=== PATIENT | female | born 1940 | race Caucasian/White ===

== ENCOUNTER 2020-02-01 11:42 | Emergency (ER) | payer MEDICARE, SELFPAY ==
--- NOTE | ~2020-02-01 | XR_ITS ---
EXAMINATION: XR chest 1V portable DATE: 02/01/2020 13:21 INDICATION: Shortness of breath. TECHNIQUE: A single frontal view of the chest was obtained. COMPARISON: None. FINDINGS: There are mild peripheral airspace opacities in the upper and lower lung zones bilaterally. No pleural effusion or pneumothorax. The heart size is normal. IMPRESSION: 1. Mild peripheral airspace opacities in the upper and lower lung zones, consistent with atelectasis/ scarring versus pneumonia. Reviewed, dictated and finalized at location A. IMPRESSION: 1. Mild peripheral airspace opacities in the upper and lower lung zones, consis tent with atelectasis/scarring versus pneumonia.
--- NOTE | 2020-02-01 11:57 | ECG_ITS ---
Measurements Intervals [place] Rate: 99 P: 37 WI: 124 QRS: 28 QRSD: 86 T: 36 QT: 342 QTc: 441 Interpretive Statements SINUS RHYTHM RSR' IN V1 OR V2, CONSIDER RIGHT VENTRICULAR HYPERTROPHY OR RIGHT VCD ST ABNORMALITY IN ANTEROLATERAL LEADS- CONSIDER ISCHEMIA BASELINE ARTIFACT- I, II, III, AVR, AVL, AVF BORDERLINE ECG Electronically Signed On 02-01-2020 12:51:22 CDT by Lenny Greenwood D.O.
[2020-02-01 12:00] VITALS: BP 129/63; PULSE 100; RESP 16; TEMP 36.8; O2SAT 98
[2020-02-01 12:03] VITALS: PULSE 100
--- NOTE | 2020-02-01 12:30 | ED.SOB ---
HPI - SOB/Dyspnea General Chief Complaint: Shortness of Breath/Dyspnea Stated Complaint: COVID, SOB Time Seen by Provider: 02/01/20 12:12 History of Present Illness HPI Narrative: 79 yo w/ h/o asthma, COVID-19 presents to the ED for SOB. She began having URI symptoms on Thursday. Positive COVID-19 test results came back 2 days ago. She has had cough, congestion, fever, and TAYLOR since getting sick. Additionally she has had nausea, loss of appetite. She has been controlling her fever with tylenol and aspirin. Related Data Home Medications Medication Instructions Recorded Confirmed ergocalciferol (vitamin D2) 50,000 unit PO WEEKLY 02/04/20 02/04/20 fluticasone furoate-vilanterol 1 inh INHALATION DAILY 02/04/20 02/04/20 [Breo Ellipta] losartan 100 mg PO DAILY 02/04/20 02/04/20 montelukast 10 mg PO DAILY 02/04/20 02/04/20 pantoprazole 40 mg PO DAILY 02/04/20 02/04/20 pravastatin 40 mg PO DAILY 02/04/20 02/04/20 spironolactone 25 mg PO DAILY 02/04/20 02/04/20 Allergies Allergy/AdvReac Type Severity Reaction Status Date / Time Penicillins Allergy Hives Verified 02/04/20 18:55 Review of Systems Review of Systems: All systems reviewed & are unremarkable except as noted in HPI and below Constitutional: Constitutional: Reports chills, Reports fatigue and Reports fever(s) Cardiovascular: Cardiovascular: Denies chest pain Respiratory: Respiratory: Reports chest congestion, Reports cough and Reports dyspnea Gastrointestinal: Gastrointestinal: Denies constipation, Denies diarrhea, Reports nausea and Denies vomiting Genitourinary: Genitourinary: Denies dysuria Neurologic: Reports dizziness and Denies weakness [facility] Past Medical History Medical History (Updated 02/04/20 @ 23:42 by Lyndsay Shook PA-C) Asthma Gastroesophageal reflux disease Hyperlipidemia Hypertension Surgical History Surgical History (Updated 02/04/20 @ 23:38 by Lyndsay Shook PA-C) History of hysterectomy History of tonsillectomy Family History Family History Other Family history of malignant neoplasm Hypertension Social History Social History (Updated 02/04/20 @ 23:39 by Lyndsay Shook PA-C) Social History: The patient lives in [place]. Her on 01/31/2020. She is a lifelong nonsmoker and denies alcohol and illicit substance use. She designates her son Darrius Chinchilla as her surrogate decision maker and she wishes to be a full code. Spiritual care concerns: No Exam Const: General: healthy appearing, no acute distress and alert Orientation/consciousness: patient oriented x3 HENMT: Head: normal to inspection Neck: Neck: normal visual inspection Resp: Effort & Inspection: normal respiratory effort Cardio: Jugular venous distension: no JVD Rate: tachycardic Rhythm: regular rhythm Skin: General skin exam: normal color Neuro: General: patient oriented x3 and moves all extremities Speech: normal speech Gait exam (Neuro): Normal gait present Extrem: General: no edema Psych: Appearance: well kempt Affect: normal affect Course Vital Signs Vital signs: Vital Signs Temperature 36.8 C 02/01/20 12:00 Pulse Rate 100 02/01/20 12:00 Respiratory Rate 16 02/01/20 12:00 Blood Pressure 129/63 02/01/20 12:00 Pulse Oximetry 98 02/01/20 12:00 Temperature 36.8 C 02/01/20 12:00 Pulse Rate 81 02/01/20 14:37 Respiratory Rate 18 02/01/20 14:37 Blood Pressure 104/92 H 02/01/20 14:37 Pulse Oximetry 96 02/01/20 14:37 MDM - SOB/Dyspnea MDM Narrative Medical decision making narrative: No episodes of hypoxia. Work-up largely unremarkable. Differential Diagnosis Differential diagnosis: Likely community acquired pneumonia and other (astham, COVID-19) Medical Records Attestation: I reviewed the patient's medical records. Lab Data Attestation: I reviewed the patient's lab results. Result diagrams:
[2020-02-01] MEDS: ONDANSETRON INJ 4 MG/2 ML VIAL IV PUSH (12:47)
[2020-02-01] MEDS: KETOROLAC 30 MG/ML VIAL (*BKC) IV PUSH (12:48)
[2020-02-01] MEDS: SODIUM CHLORIDE 0.9% IV 1,000 ML 999 ML IV CONT (12:48)
[2020-02-01 12:54] VITALS: BP 109/66; PULSE 87; RESP 19; O2SAT 97
[2020-02-01 12:56] LABS: Basophils Percent Auto 0.2 % (0.2-1.2); Hematocrit 40.6 % (37.0-47.0); Hemoglobin 13.4 g/dL (12.0-15.0); Immature Granulocyte Absolute 0.03 K/mm3 (0.00-0.031); Immature Granulocyte Percent A 0.3 % (0-0.5); Lymphocytes Absolute Auto 1.24 K/mm3 (0.9-3.2); Mean Corpuscular Hemoglobin 30.9 pg (26-34); Mean Corpuscular Volume 93.5 fl (80-100); Mean Platelet Volume 8.3 fl (7.4-10.4); Monocytes Absolute Auto 0.5 K/mm3 (0.1-0.6); Monocytes Percent Auto 4.5 % (2.6-8.5); Neutrophils Absolute Auto 8.6 K/mm3 (1.3-6.7); Platelet Count Result 249 k/mm3 (150-375); Red Blood Count 4.34 M/mm3 (4.2-5.4); Red Cell Distribution Width 13.2 % (11.5-14.5); White Blood Count 10.3 K/mm3 (4.5-10.0)
[2020-02-01 12:58] VITALS: O2SAT 97
[2020-02-01 13:08] LABS: Alanine Aminotransferase 23 U/L (4-35); Albumin Level 4.3 g/dL (3.5-5.1); Alkaline Phosphatase 66 U/L (38-126); Anion Gap 12 mmol/L (8-16); Aspartate Amino Transferase 51 U/L (14-36); Bilirubin,Total 0.4 mg/dL (0.2-1.3); Blood Urea Nitrogen 23 mg/dL (7-17); Calcium 9.3 mg/dL (8.4-10.2); Carbon Dioxide 26 mmol/L (22-30); Chloride 101 mmol/L (98-107); Estimated Glomerular Filt Rate > 60; Glucose 101 mg/dL (65-105); Potassium 3.8 mmol/L (3.4-5.0); Sodium 139 mmol/L (137-145)
[2020-02-01 14:02] VITALS: BP 109/66; PULSE 78; RESP 18; O2SAT 98
[2020-02-01 14:37] VITALS: BP 104/92; PULSE 81; RESP 18; O2SAT 96
== END 2020-02-01 14:44 | disposition home or self-care (01) ==
PROVIDERS: Emergency Provider Emergency Medicine; PCP Internal Medicine
DX: U07.1 COVID-19 (principal); J12.89 Other viral pneumonia; K21.9 Gastro-esophageal reflux disease without esophagitis; E78.5 Hyperlipidemia, unspecified; I10 Essential (primary) hypertension; J45.909 Unspecified asthma, uncomplicated; R94.31 Abnormal electrocardiogram [ECG] [EKG]
CPT/HCPCS: 36415; 71045; 80053; 85025; 93005; 96361; 96374; 96375; 99284; J1100; J1885; J2405; J7030

== ENCOUNTER 2020-02-04 12:50 | Inpatient (IN) | payer MEDICARE, SELFPAY ==
[2020-02-04] VITALS (8 sets, daily range): BP systolic 111–126; BP diastolic 50–71; PULSE 73–110; RESP 14–27; TEMP 36.6–38.3; O2SAT 89–98; BMI 20.7
--- NOTE | ~2020-02-04 | XR_ITS ---
EXAMINATION: XR chest 1V portable INDICATION: Shortness of breath, COVID positive TECHNIQUE: Portable AP chest at 1341 hours COMPARISON: 02/01/2020 FINDINGS: Peripheral airspace opacities of the lungs persist without significant change. There is no pleural effusion or pneumothorax. The cardiomediastinal silhouette is normal. IMPRESSION: 1. Unchanged airspace opacities of the lungs, consistent with atelectasis versus pneumonia. Reviewed, dictated and finalized at location A. IMPRESSION: 1. Unchanged airspace opacities of the lungs, consistent with atelectasis versu s pneumonia.
--- NOTE | ~2020-02-04 | XR_ITS ---
EXAMINATION: XR chest 1V portable INDICATION: COVID 19 pneumonia TECHNIQUE: Portable AP chest at 0828 hours COMPARISON: 02/04/2020 FINDINGS: Patchy, peripheral airspace opacities of the lungs persist without significant change. Ther e is no pleural effusion or pneumothorax. Mild elevation of the right hemidiaphragm is unchanged. The cardiomediastinal silhouette is stable. IMPRESSION: 1. Unchanged patchy airspace opacities of the lungs, consistent with atelectasis versus pneumonia. Reviewed, dictated and finalized at location A. [employer] IMPRESSION: 1. Unchanged patchy airspace opacities of the lungs, consistent with atelectasi s versus pneumonia.
[2020-02-04 13:23] LABS: Basophils Percent Auto 0.1 % (0.2-1.2); Eosinophils Percent Auto 0.1 % (0-4.4); Hematocrit 36.5 % (37.0-47.0); Hemoglobin 12.3 g/dL (12.0-15.0); Immature Granulocyte Absolute 0.05 K/mm3 (0.00-0.031); Immature Granulocyte Percent A 0.6 % (0-0.5); Lymphocytes Absolute Auto 0.96 K/mm3 (0.9-3.2); Lymphocytes Percent Auto 10.6 % (18.3-44.2); Mean Corpuscular HGB Conc 33.7 g/dl (32-36); Mean Corpuscular Hemoglobin 30.8 pg (26-34); Mean Corpuscular Volume 91.5 fl (80-100); Mean Platelet Volume 8.4 fl (7.4-10.4); Monocytes Absolute Auto 0.4 K/mm3 (0.1-0.6); Monocytes Percent Auto 4.3 % (2.6-8.5); Neutrophils Absolute Auto 7.6 K/mm3 (1.3-6.7); Neutrophils Percent Auto 84.3 % (45.5-73.1); Platelet Count Result 337 k/mm3 (150-375); Red Blood Count 3.99 M/mm3 (4.2-5.4); Red Cell Distribution Width 13.4 % (11.5-14.5)
[2020-02-04 13:34] LABS: Lactic Acid Reflex 0.9 mmol/L (0.7-2.1)
[2020-02-04 13:38] LABS: Partial Thromboplastin Time 39.3 SECONDS (22.3-36.8)
[2020-02-04 13:51] LABS: Prothrombin Time 13.3 Seconds (11.1-14.7)
--- NOTE | 2020-02-04 13:52 | ED.GENADULT ---
HPI - General Adult General Chief complaint: Shortness of Breath/Dyspnea Stated complaint: low o2 saturations Time Seen by Provider: 02/04/20 13:39 Source: patient History of Present Illness HPI narrative: Patient is a 79 y/o female complaining of fever, cough and SOB for 8 days. She states that her fever was upto 102. There is no alleviating or exacerbating factor. She denies any chest pain, abdominal pain, vomiting or diarrhea. She found out that her COVID test was positive on 01/28. She continues to have persistent fever and cough after her COVID diagnosis. Related Data Home Medications Medication Instructions Recorded Confirmed ergocalciferol (vitamin D2) 02/04/20 fluticasone furoate-vilanterol INHALATION 02/04/20 [Breo Ellipta] losartan 02/04/20 montelukast mg 02/04/20 pantoprazole PO 02/04/20 pravastatin 02/04/20 spironolactone 02/04/20 Allergies Allergy/AdvReac Type Severity Reaction Status Date / Time Penicillins Allergy Hives Verified 02/04/20 14:55 Review of Systems Constitutional: Constitutional: Reports chills, Reports fever(s), Denies headache(s) and Denies weakness Eyes: Eyes: Denies blurry vision ENT: Denies headache(s) and Denies neck pain Cardiovascular: Cardiovascular: Denies chest pain and Reports dyspnea Respiratory: Respiratory: Reports cough and Reports dyspnea Gastrointestinal: Gastrointestinal: Denies abdominal pain, Denies diarrhea, Denies nausea and Denies vomiting Genitourinary: Genitourinary: Denies hematuria and Denies dysuria Musculoskeletal: Musculoskeletal: Denies back pain and Denies neck pain Neurologic: Denies headache(s) and Denies weakness [facility] Past Medical History Medical History Asthma GERD (gastroesophageal reflux disease) Family History Family History Other Family history of malignant neoplasm Hypertension Social History Social History Smoking status: Never smoker Alcohol intake: current Exam Const: General: no acute distress and well developed Orientation/consciousness: oriented to person, oriented to place, oriented to time and patient oriented x3 HENMT: Head: normocephalic Ears: external ears normal General nose exam: Normal external nose present Eyes: General: appearance normal, both eyes and all related structures Conjunctivae: conjunctivae normal Neck: Neck: normal visual inspection and full ROM Chest: Chest palpation & inspection: normal inspection of the chest and no tenderness Resp: Effort & Inspection: normal respiratory effort Auscultation: clear to auscultation bilaterally Cardio: Rate: regular rate Rhythm: regular rhythm GI: GI Palp: No abdominal tenderness and Yes Soft to palpation Skin: General skin exam: normal color and turgor normal Neuro: General: oriented to person, oriented to place, oriented to time and patient oriented x3 Cognition (Neuro): normal cognition Extrem: General: normal to inspection, full ROM and no pedal edema Psych: Appearance: grossly normal Mental Status: mental status grossly normal Affect: normal affect Course Consultations Consultation #1: Discussed with BILLY Umana, who agrees to admit. Date: 02/04/20 Time: 15:13 Vital Signs Vital signs: Vital Signs Temperature 38.3 C H 02/04/20 13:00 Pulse Rate 95 02/04/20 13:00 Respiratory Rate 16 02/04/20 13:00 Blood Pressure 111/66 02/04/20 13:00 Pulse Oximetry 95 02/04/20 13:00 Temperature 37.2 C 02/04/20 16:00 Pulse Rate 88 02/04/20 16:00 Respiratory Rate 22 H 02/04/20 16:00 Blood Pressure 112/61 02/04/20 16:00 Pulse Oximetry 95 02/04/20 16:00 Medical Decision Making Vital Signs Vital Signs: Vital Signs Temperature 38.3 C H 02/04/20 13:00 Pulse Rate 95 02/04/20 13:00 Respiratory Rate 16 02/04/20 13:00 Blood Pressur
[2020-02-04 13:53] LABS: Alanine Aminotransferase 27 U/L (4-35); Albumin Level 3.8 g/dL (3.5-5.1); Alkaline Phosphatase 93 U/L (38-126); Anion Gap 9 mmol/L (8-16); Aspartate Amino Transferase 50 U/L (14-36); Bilirubin,Total 0.4 mg/dL (0.2-1.3); Blood Urea Nitrogen 17 mg/dL (7-17); CRP 26.4 mg/dL (<1.0); Calcium 8.9 mg/dL (8.4-10.2); Carbon Dioxide 23 mmol/L (22-30); Chloride 104 mmol/L (98-107); Estimated Glomerular Filt Rate > 60; Glucose 101 mg/dL (65-105); Potassium 3.7 mmol/L (3.4-5.0); Sodium 136 mmol/L (137-145)
[2020-02-04 14:16] LABS: Alveolar/Arterial O2 Gradient 50.8 mmHg; Base Excess ABG -1.7 mEq/l (+/-2.0); Fractional Inspired Oxygen 21 %; HCO3 ABG 21.6 mEq/l (22.0-26.0); Oxygen Content ABG 15.7 %vol (16.0-22.0); Oxygen Saturation ABG 92.5 % (95.0-100.0); Oxyhemoglobin 91.4 % THb (90.0-100.0); PO2 ABG 60.6 mmHg (80.0-100.0); PO2 FiO2 Ratio Arterial Blood 2.89 %; Total Hemoglobin 12.2 g/dL (12.0-18.0); pH ABG 7.447 (7.350-7.450)
[2020-02-04 14:18] LABS: Device ROOM AIR; Site Drawn LEFT BRACHIAL
[2020-02-04] MEDS: DEXAMETHASONE SOD PHOS INJ 4 MG/ML VIAL 6 MG IV PUSH (16:03)
[2020-02-04] MEDS: REMDESIVIR 200 MG/NS 250 ML 200 MG/250 ML BAG 250 MG IVPB (16:06)
--- NOTE | 2020-02-04 18:58 | ADMGEN ---
This patient, Mckenna Chinchilla, was admitted to [facility] Surg Room 330-02. Patient/family oriented to hospital policies and general routines including ID bracelet, bed and alarms, visiting hours, pain management, procedures, bathroom and other care routines, personal items, smoking policy, room service/diet, and visiting hours. Information on how to activate the Rapid Response Team has been discussed. Patient/Family are encouraged to report perceived risks to care and to ask questions if they do not understand what they are told or what they should do.
--- NOTE | 2020-02-04 22:00 | PM.IMHP ---
H&P: HPI History of Present Illness Date/Time: 02/04/20 22:00 Chief complaint: Low oxygen saturations. Narrative: Mckenna Chinchilla is a very pleasant 79-year-old female with asthma, hypertension, hyperlipidemia, and GERD who presented to the emergency department earlier this afternoon via private vehicle from home with reports of low oxygen saturation. Her daughter had COVID several weeks ago and the patient began having symptoms a little over a week ago. She tested positive for COVID on January 26, and she has had fevers daily since that time with a T-max of 102?. She also reports a mild headache, shortness of breath, dry cough, decreased appetite, and occasional loose stools. Since her diagnosis she has been monitoring her oxygen saturations, and over the last day she notes oxygen saturations will dip into the 80s when ambulating without much exertion. No significant wheezing; she has not needed to use her rescue inhaler more than usual. She denies sore throat, chest pain, nausea, and vomiting. Of note, the patient's was admitted to the hospital on the day that she tested positive, and he 4 days ago on Thursday. She was unable to see him during this hospitalization due to COVID-19, and this of course has been a very stressful time for her. Review of Systems Review of Systems: Narrative: Twelve systems were reviewed with pertinent positives and negatives as per HPI. Except as documented, all other systems were reviewed and are negative. [facility] Past Medical History Medical History (Updated 02/04/20 @ 23:42 by Lyndsay Shook PA-C) Asthma Gastroesophageal reflux disease Hyperlipidemia Hypertension Surgical History Surgical History (Updated 02/04/20 @ 23:38 by Lyndsay Shook PA-C) History of hysterectomy History of tonsillectomy Family History Family History Other Family history of malignant neoplasm Hypertension Social History Social History (Updated 02/04/20 @ 23:39 by Lyndsay Shook PA-C) Social History: The patient lives in [place]. Her on 01/31/2020. She is a lifelong nonsmoker and denies alcohol and illicit substance use. She designates her son Darrius Chinchilla as her surrogate decision maker and she wishes to be a full code. Spiritual care concerns: No Meds Home Medications and Allergies Home Medications Medication Instructions Recorded Confirmed Type ondansetron HCl [Zofran] 4 mg PO Q6H PRN #10 tablet 02/01/20 02/04/20 Rx ergocalciferol (vitamin D2) 50,000 unit PO WEEKLY 02/04/20 02/04/20 History fluticasone furoate-vilanterol 1 inh INHALATION DAILY 02/04/20 02/04/20 History [Breo Ellipta] losartan 100 mg PO DAILY 02/04/20 02/04/20 History montelukast 10 mg PO DAILY 02/04/20 02/04/20 History pantoprazole 40 mg PO DAILY 02/04/20 02/04/20 History pravastatin 40 mg PO DAILY 02/04/20 02/04/20 History spironolactone 25 mg PO DAILY 02/04/20 02/04/20 History Allergies Allergy/AdvReac Type Severity Reaction Status Date / Time Penicillins Allergy Hives Verified 02/04/20 18:55 Vital Signs Vital Signs - 24 hr 02/04/20 13:00 02/04/20 14:47 02/04/20 14:51 Temperature 100.9 F H 98.5 F Pulse Rate 95 94 110 H Respiratory Rate 16 24 H 27 H Blood Pressure 111/66 120/69 Pulse Oximetry 95 91 89 L 02/04/20 16:00 02/04/20 18:04 02/04/20 19:02 Temperature 98.9 F 98.7 F 97.8 F Pulse Rate 88 84 73 Respiratory Rate 22 H 22 H 14 Blood Pressure 112/61 119/71 126/52 L Pulse Oximetry 95 96 97 02/04/20 20:00 02/04/20 20:22 Temperature 97.8 F Pulse Rate 78 79 Respiratory Rate 18 16 Blood Pressure 115/50 L Pulse Oximetry 98 96 Exam Narrative: Exam Narrative: General: Frail elderly female supine in bed in no acute distress. She is nontoxic in appearance. Weight: 46.7 kg. BMI: 20.8. HEENT: Normocephalic, atraumatic. PERRL, EOMI. Sclerae anicteric. Oral mucosa tack
[2020-02-05] VITALS (7 sets, daily range): BP systolic 111–135; BP diastolic 51–62; PULSE 67–81; RESP 16–20; TEMP 36.3–36.7; O2SAT 95–98
--- NOTE | 2020-02-05 01:49 | PC.NURSE ---
Daylight Savings Time For Daylight Savings Time Ending in the Fall - Clocks are moved back. For Daylight Savings Time Beginning in the Spring - Clocks are moved ahead. For [facility], the time of change occurs at 0200 hrs. Time is taken from the fire observer. This entry on the patient's chart recognizes the change in time reflected during documentation. Example: 2 entries for vital signs may be charted for 0200 hrs.
[2020-02-05 06:31] LABS: Hematocrit 35.4 % (37.0-47.0); Hemoglobin 11.6 g/dL (12.0-15.0); Mean Corpuscular HGB Conc 32.8 g/dl (32-36); Mean Corpuscular Hemoglobin 30.3 pg (26-34); Mean Corpuscular Volume 92.4 fl (80-100); Mean Platelet Volume 8.7 fl (7.4-10.4); Platelet Count Result 395 k/mm3 (150-375); Red Blood Count 3.83 M/mm3 (4.2-5.4); Red Cell Distribution Width 13.5 % (11.5-14.5); White Blood Count 4.5 K/mm3 (4.5-10.0)
[2020-02-05 06:45] LABS: D Dimer 0.92 ug/mL (<0.48)
[2020-02-05 07:04] LABS: Monocytes Absolute Manual 0.22 K/mm3 (0.1-0.90); Monocytes Percent Manual 5 % (3-9); Neutrophils Percent Manual 75 % (46-73); Platelet Estimate Increased (Adequate); Total Cells Counted 100
[2020-02-05 08:34] LABS: Alanine Aminotransferase 34 U/L (4-35); Albumin Level 3.6 g/dL (3.5-5.1); Alkaline Phosphatase 81 U/L (38-126); Anion Gap 9 mmol/L (8-16); Aspartate Amino Transferase 65 U/L (14-36); Bilirubin,Total 0.4 mg/dL (0.2-1.3); Blood Urea Nitrogen 23 mg/dL (7-17); CRP 30.6 mg/dL (<1.0); Calcium 8.7 mg/dL (8.4-10.2); Carbon Dioxide 26 mmol/L (22-30); Chloride 105 mmol/L (98-107); Estimated Glomerular Filt Rate > 60; Glucose 127 mg/dL (65-105); Lactate Dehydrogenase 732 U/L (313-618); Magnesium 2.4 mg/dL (1.6-2.3); Potassium 4.4 mmol/L (3.4-5.0); Sodium 140 mmol/L (137-145)
[2020-02-05] MEDS: ENOXAPARIN 40 MG/0.4 ML SYRINGE SUB-Q (09:13)
[2020-02-05] MEDS: DEXAMETHASONE SOD PHOS INJ 4 MG/ML VIAL 6 MG IV PUSH (09:13)
[2020-02-05] MEDS: MONTELUKAST SODIUM 10 MG TABLET PO (09:13)
[2020-02-05] MEDS: PANTOPRAZOLE 40 MG TABLET PO (09:13)
[2020-02-05] MEDS: PRAVASTATIN SODIUM 20 MG TABLET 40 MG PO (09:13)
[2020-02-05] MEDS: LOSARTAN POTASSIUM 100 MG TABLET PO (09:13)
[2020-02-05] MEDS: SPIRONOLACTONE 25 MG TABLET PO (09:13)
--- NOTE | 2020-02-05 10:24 | PM.IMPN ---
Progress Note: A&P Assessment and Plan (1) Acute respiratory failure with hypoxia: Code(s): J96.01 - Acute respiratory failure with hypoxia Status: Acute Assessment and Plan: Appears to be secondary to COVID-19 pneumonia. She was hypoxic at 89% upon presentation which quickly improved with supplemental O2. No additional episodes of hypoxia. Supplemental O2 as needed with goal saturation 92% or above. Wean to goal. Continue with treatment for COVID-19 as below Continue bronchodilators and supportive care (2) Pneumonia due to COVID-19 virus: Code(s): U07.1 - COVID-19; J12.89 - Other viral pneumonia Status: Acute Assessment and Plan: Patient tested positive for COVID on 01/27/20. She reported daily fevers with T-max of 102?. She was febrile upon presentation to this facility with T-max of 100.9? and has been afebrile since. Mild leukocytosis upon arrival that has resolved. CXR showed mild peripheral airspace opacities in the upper and lower lung zones. She is maintaining adequate oxygen saturations on 1 L O2 per nasal cannula. Continue remdesivir for up to 5 days. Started on 02/04/2020. Continue dexamethasone for up to 10 days. Started on 02/03 Supportive care to include bronchodilators, antipyretics, and expectorants Supplemental O2 as needed. Goal saturation 92% or above. Wean to goal. Trend acute phase reactants Continue isolation precautions (3) Asthma: Code(s): J45.909 - Unspecified asthma, uncomplicated Status: Inactive Assessment and Plan: No evidence of significant bronchospasm. Not in acute exacerbation. No wheezing noted. Continue maintenance inhaler (4) Hypertension: Code(s): I10 - Essential (primary) hypertension Status: Inactive Assessment and Plan: Blood pressure evaluated today and is stable at 122/53. Continue losartan (5) Hyperlipidemia: Code(s): E78.5 - Hyperlipidemia, unspecified Status: Inactive Assessment and Plan: LFTs appropriate. Continue pravastatin (6) Gastroesophageal reflux disease: Code(s): K21.9 - Gastro-esophageal reflux disease without esophagitis Status: Acute Assessment and Plan: Chronic. She is asymptomatic. Continue pantoprazole Subjective Date/time seen: 02/05/20 10:24 Interval history: Date of service: 02/05/2020 Mckenna Chinchilla is a 79-year-old female with a history of asthma, hypertension, hyperlipidemia who is seen in follow-up for COVID-19 pneumonia. She complains of feeling short of breath, but feels that this is improving slowly. She endorses TAYLOR. She denies orthopnea or PND. She has a cough but is having difficulty expectorating. She complains of congestion in her chest. She denies abdominal pain, nausea, or vomiting. Her appetite has been good. She denies anosmia and dysgeusia. She has not had a headache. Her last bowel movement was about 2 days ago. She is urinating without difficulty. She denies fevers, chills, body aches, dizziness, lightheadedness, or weakness. She has no additional concerns. She becomes tearful when discussing her , who just at this hospital several days ago. I spoke with her son via phone as he was requesting more information and answered all of his questions. Review of Systems Review of Systems: All systems reviewed & are unremarkable except as noted in HPI and below Exam Narrative: Exam Narrative: Ms. Chinchilla is A well-nourished, well-appearing 79-year-old female who is lying supine in bed. She appears comfortable and is in NARD. HR 68, BP 122/53, RR 18, T 97.4?, 96% on 1 L Neuro: awake, alert and oriented x4, speech clear, no focal neuro deficits noted HEENMT: normocephalic, atraumatic, EOMI, sclerae anicteric, moist oral mucosa, tongue midline, nares patent Neck: supple, no lymphadenopathy Respiratory: clear to auscultation
[2020-02-05] MEDS: guaiFENesin 12 HR 600 MG TABCR PO ×2 (12:12→21:09)
[2020-02-05] MEDS: REMDESIVIR 100 MG/NS 250 ML 100 MG/250 ML BAG 250 MG IVPB (16:35)
[2020-02-05] MEDS: BUDESONIDE/FORMOTEROL (*SP) 160-4.5 MCG 6 GM INH 2 PUFF INHALATION (21:20)
[2020-02-06] VITALS (7 sets, daily range): BP systolic 110–138; BP diastolic 53–72; PULSE 68–76; RESP 16–18; TEMP 36.4–36.9; O2SAT 90–96; BMI 20.7
[2020-02-06 06:33] LABS: Hematocrit 33.4 % (37.0-47.0); Hemoglobin 11.3 g/dL (12.0-15.0); Mean Corpuscular HGB Conc 33.8 g/dl (32-36); Mean Corpuscular Hemoglobin 30.4 pg (26-34); Mean Corpuscular Volume 89.8 fl (80-100); Mean Platelet Volume 8.5 fl (7.4-10.4); Platelet Count Result 480 k/mm3 (150-375); Red Blood Count 3.72 M/mm3 (4.2-5.4); Red Cell Distribution Width 13.3 % (11.5-14.5); White Blood Count 9.9 K/mm3 (4.5-10.0)
[2020-02-06 06:55] LABS: Alanine Aminotransferase 27 U/L (4-35); Albumin Level 3.2 g/dL (3.5-5.1); Alkaline Phosphatase 71 U/L (38-126); Anion Gap 7 mmol/L (8-16); Aspartate Amino Transferase 40 U/L (14-36); Bilirubin,Total 0.4 mg/dL (0.2-1.3); Blood Urea Nitrogen 24 mg/dL (7-17); Calcium 8.6 mg/dL (8.4-10.2); Carbon Dioxide 24 mmol/L (22-30); Chloride 106 mmol/L (98-107); Estimated Glomerular Filt Rate > 60; Glucose 135 mg/dL (65-105); Lactate Dehydrogenase 587 U/L (313-618); Sodium 137 mmol/L (137-145)
[2020-02-06 07:13] LABS: CRP 14.7 mg/dL (<1.0)
[2020-02-06] MEDS: ENOXAPARIN 40 MG/0.4 ML SYRINGE SUB-Q (08:08)
[2020-02-06] MEDS: LOSARTAN POTASSIUM 100 MG TABLET PO (08:09)
[2020-02-06] MEDS: PANTOPRAZOLE 40 MG TABLET PO (08:09)
[2020-02-06] MEDS: DEXAMETHASONE SOD PHOS INJ 4 MG/ML VIAL 6 MG IV PUSH (08:09)
[2020-02-06] MEDS: guaiFENesin 12 HR 600 MG TABCR PO ×2 (08:09→21:00)
[2020-02-06] MEDS: MONTELUKAST SODIUM 10 MG TABLET PO (08:09)
[2020-02-06] MEDS: SPIRONOLACTONE 25 MG TABLET PO (08:09)
[2020-02-06] MEDS: PRAVASTATIN SODIUM 20 MG TABLET 40 MG PO (08:09)
[2020-02-06] MEDS: BUDESONIDE/FORMOTEROL (*SP) 160-4.5 MCG 6 GM INH 2 PUFF INHALATION ×2 (08:40→21:27)
--- NOTE | 2020-02-06 11:36 | PM.IMPN ---
Progress Note: A&P Assessment and Plan (1) Gastroesophageal reflux disease: Code(s): K21.9 - Gastro-esophageal reflux disease without esophagitis Status: Acute Assessment and Plan: Stable. Continue PPI (2) Pneumonia due to COVID-19 virus: Code(s): U07.1 - COVID-19; J12.89 - Other viral pneumonia Status: Acute Assessment and Plan: Continue Remdesivir + Dexamethasone. Repeat chest xr shows no worsening of infiltrates. Airborne isolation (3) Acute respiratory failure with hypoxia: Code(s): J96.01 - Acute respiratory failure with hypoxia Status: Acute Assessment and Plan: On 1 L wean off of as needed. Subjective Date/time seen: 02/06/20 11:36 I feel fine. Review of Systems Review of Systems: Narrative: 79 yo presented to ED due to sob found to have lung infiltrates Covid 19 panumonia Constitutional: Comments: no fevers, no rigors, no chills. Eyes: Comments: no vision changes. ENT: Comments: no ear ache, no throat pain, no nasal congestion. Cardiovascular: Comments: no chest pain. Respiratory: Comments: sob. Gastrointestinal: Comments: no n/v/abdominal pain. Musculoskeletal: Comments: no joint pain or swelling. Integumentary/Breasts: Comments: no rashes. Neurologic: Comments: no sensory motor deficit. Hematologic/Lymphatic: Comments: No LAP Exam Narrative: Exam Narrative: Well appearing. Const: General: healthy appearing, comfortable, no acute distress, well developed, alert, awake and Physically active Nutritional Appearance: average body habitus Orientation/consciousness: patient oriented x3 HENMT: Head: normal to inspection and normocephalic Ears: hearing grossly normal bilaterally General nose exam: Normal external nose present Eyes: General: appearance normal, both eyes and all related structures Pupils: Equal, round and reactive pupils present EOM: EOMs intact bilaterally Neck: Neck: normal visual inspection, no lymphadenopathy and no JVD Lymphatic: no lymphadenopathy noted Resp: Auscultation: clear to auscultation bilaterally Cardio: Jugular venous distension: no JVD Rate: regular rate Rhythm: regular rhythm GI: Inspection: normal to inspection GI Palp: Yes Soft to palpation and Yes No hepatosplenomegaly present Auscultation: normal bowel sounds Skin: General skin exam: normal color Lesions: no lesions Rashes: no rashes Wounds: no wounds Neuro: General: patient oriented x3 and CN's II-XI intact bilaterally Cranial nerves: Yes CN's II-XII intact bilaterally and Yes Equal, round and reactive pupils present Extrem: General: normal to inspection and no pedal edema Objective Data Vital Signs Vital Signs: Vital Signs - 24 hr 02/05/20 12:00 02/05/20 16:00 02/05/20 20:00 Temperature 97.5 F L 98.1 F 97.6 F Pulse Rate 79 73 71 Respiratory Rate 20 18 16 Blood Pressure 128/52 L 131/62 135/57 L Pulse Oximetry 96 97 97 02/05/20 21:20 02/06/20 00:00 02/06/20 04:00 Temperature 97.9 F 97.7 F Pulse Rate 74 68 70 Respiratory Rate 18 16 18 Blood Pressure 126/61 128/72 Pulse Oximetry 95 90 96 02/06/20 08:00 02/06/20 08:40 Temperature 98.0 F Pulse Rate 76 Respiratory Rate 18 Blood Pressure 119/60 Pulse Oximetry 94 95 Intake/Output Intake/Output: Intake & Output 02/04/20 02/05/20 02/05/20 02/06/20 00:59 00:59 23:59 23:59 Intake Total 810 Output Total 400 Balance 410 Meds/Results Medications: Active Medications Generic Name Dose Route Start Last Admin Trade Name Freq PRN Reason Stop Dose Admin Albuterol 2 puff 02/04/20 23:45 Albuterol Sulfate (*Sp) Aerosol 1 Puff INHALATION QIDRT PRN Shortness Of Breath Budesonide/Formoterol Fumarate 2 puff 02/05/20 20:00 02/06/20 08:40 Budesonide/Formoterol (*Sp) 160-4.5 Mcg 6 Gm Inh INHALATION 2 puff Q12HRT OANH Administration Dexamethasone Sodium Phosphate 6 mg 02/05/20 09:00 02/06/20 08:09 Dexamethasone Sod Phos
[2020-02-06] MEDS: REMDESIVIR 100 MG/NS 250 ML 100 MG/250 ML BAG 175 MG IVPB (15:50)
[2020-02-07] VITALS (7 sets, daily range): BP systolic 106–128; BP diastolic 50–67; PULSE 63–81; RESP 16–20; TEMP 36.5–36.9; O2SAT 92–98
[2020-02-07 06:30] LABS: Alanine Aminotransferase 46 U/L (4-35)
[2020-02-07] MEDS: BUDESONIDE/FORMOTEROL (*SP) 160-4.5 MCG 6 GM INH 2 PUFF INHALATION ×2 (08:27→20:47)
[2020-02-07 08:34] LABS: Hematocrit 33.7 % (37.0-47.0); Hemoglobin 11.6 g/dL (12.0-15.0); Mean Corpuscular HGB Conc 34.4 g/dl (32-36); Mean Corpuscular Hemoglobin 31.3 pg (26-34); Mean Corpuscular Volume 90.8 fl (80-100); Mean Platelet Volume 8.5 fl (7.4-10.4); Platelet Count Result 480 k/mm3 (150-375); Red Blood Count 3.71 M/mm3 (4.2-5.4); Red Cell Distribution Width 13.5 % (11.5-14.5); White Blood Count 11.3 K/mm3 (4.5-10.0)
[2020-02-07 08:44] LABS: Alkaline Phosphatase 71 U/L (38-126); Bilirubin,Total 0.5 mg/dL (0.2-1.3)
[2020-02-07 08:47] LABS: Anion Gap 8 mmol/L (8-16); Aspartate Amino Transferase 62 U/L (14-36); Blood Urea Nitrogen 22 mg/dL (7-17); Calcium 8.5 mg/dL (8.4-10.2); Carbon Dioxide 26 mmol/L (22-30); Chloride 105 mmol/L (98-107); Estimated Glomerular Filt Rate > 60; Glucose 97 mg/dL (65-105); Potassium 3.8 mmol/L (3.4-5.0); Sodium 139 mmol/L (137-145)
[2020-02-07] MEDS: PANTOPRAZOLE 40 MG TABLET PO (10:17)
[2020-02-07] MEDS: PRAVASTATIN SODIUM 20 MG TABLET 40 MG PO (10:17)
[2020-02-07] MEDS: guaiFENesin 12 HR 600 MG TABCR PO ×2 (10:17→20:51)
[2020-02-07] MEDS: DEXAMETHASONE SOD PHOS INJ 4 MG/ML VIAL 6 MG IV PUSH (10:17)
[2020-02-07] MEDS: ENOXAPARIN 40 MG/0.4 ML SYRINGE SUB-Q (10:18)
[2020-02-07] MEDS: SPIRONOLACTONE 25 MG TABLET PO (10:18)
[2020-02-07] MEDS: LOSARTAN POTASSIUM 100 MG TABLET PO (10:18)
[2020-02-07] MEDS: MONTELUKAST SODIUM 10 MG TABLET PO (10:18)
[2020-02-07] MEDS: REMDESIVIR 100 MG/NS 250 ML 100 MG/250 ML BAG 250 MG IVPB (16:17)
--- NOTE | 2020-02-07 16:54 | PM.IMPN ---
Progress Note: A&P Assessment and Plan (1) Gastroesophageal reflux disease: Code(s): K21.9 - Gastro-esophageal reflux disease without esophagitis Status: Acute Assessment and Plan: Stable with PPI (2) Pneumonia due to COVID-19 virus: Code(s): U07.1 - COVID-19; J12.89 - Other viral pneumonia Status: Acute Assessment and Plan: Continue Remdesivir + Dexamethasone completing 5 days course soon DC soon Repeat chest xr shows improvement. Inhaler and cough syrup Long discussion with son about possible discharge tomorrow. (3) Acute respiratory failure with hypoxia: Code(s): J96.01 - Acute respiratory failure with hypoxia Status: Resolved Assessment and Plan: Pt is on room air doing better Subjective Date/time seen: 02/07/20 16:54 Interval history: Mckenna Chinchilla is a 79-year-old female with a history of asthma, hypertension, hyperlipidemia who is seen in follow-up for COVID-19 pneumonia. Pt has been having trouble with low BP today. Pt is still having cough, no fever. Pt feels better, but still feels sob when she walks. Eating ok. Discharge tomorrow since she completed 5 days of remdesivir. Long discussion with her son in the phone, he had concerns about her health. Review of Systems Review of Systems: All systems reviewed & are unremarkable except as noted in HPI and below Exam Narrative: Exam Narrative: Pleasant elderly lady Const: General: healthy appearing, comfortable, no acute distress, alert and awake Nutritional Appearance: average body habitus Orientation/consciousness: patient oriented x3 Resp: Effort & Inspection: able to speak in complete sentences GI: Inspection: normal to inspection Auscultation: normal bowel sounds Skin: General skin exam: normal color Lesions: no lesions Rashes: no rashes Wounds: no wounds Neuro: General: patient oriented x3 and CN's II-XI intact bilaterally Cranial nerves: Yes CN's II-XII intact bilaterally and Yes Equal, round and reactive pupils present Objective Data Vital Signs Vital Signs: Vital Signs - 24 hr 02/06/20 20:00 02/07/20 00:00 02/07/20 05:00 Temperature 36.9 C 36.5 C 36.8 C Pulse Rate 72 63 70 Respiratory Rate 16 16 20 Blood Pressure 110/69 112/61 117/59 L Pulse Oximetry 95 94 94 02/07/20 08:00 02/07/20 08:27 02/07/20 12:00 Temperature 36.7 C 36.9 C Pulse Rate 74 76 Respiratory Rate 16 16 Blood Pressure 128/58 L 114/50 L Pulse Oximetry 92 94 95 02/07/20 16:44 Temperature 36.8 C Pulse Rate 75 Respiratory Rate 16 Blood Pressure 106/67 Pulse Oximetry 97 Intake/Output Intake/Output: Intake & Output 02/05/20 02/05/20 02/06/20 02/07/20 00:59 23:59 23:59 23:59 Intake Total 2510 300 Output Total 1000 600 Balance 1510 -300 Meds/Results Medications: Active Medications Generic Name Dose Route Start Last Admin Trade Name Freq PRN Reason Stop Dose Admin Albuterol 2 puff 02/04/20 23:45 Albuterol Sulfate (*Sp) Aerosol 1 Puff INHALATION QIDRT PRN Shortness Of Breath Budesonide/Formoterol Fumarate 2 puff 02/05/20 20:00 02/07/20 08:27 Budesonide/Formoterol (*Sp) 160-4.5 Mcg 6 Gm Inh INHALATION 2 puff Q12HRT OANH Administration Dexamethasone Sodium Phosphate 6 mg 02/05/20 09:00 02/07/20 10:17 Dexamethasone Sod Phos Inj 4 Mg/Ml Vial IV PUSH 02/14/20 09:01 6 mg DAILY OANH Administration Enoxaparin Sodium 40 mg 02/05/20 09:00 02/07/20 10:18 Enoxaparin 40 Mg/0.4 Ml Syringe SUB-Q 40 mg DAILY OANH Administration Guaifenesin 600 mg 02/05/20 10:30 02/07/20 10:17 Guaifenesin 12 Hr 600 Mg Tabcr PO 600 mg Q12HR OANH Administration Remdesivir 100 mg in 250 mls @ 250 mls/hr 02/05/20 16:00 02/07/20 16:17 IVPB 02/08/20 16:59 250 mls/hr Q24H OANH Administration Losartan Potassium 100 mg 02/05/20 09:00 02/07/20 10:18 Losartan Potassium 100 Mg Tablet PO 100 mg DAILY OANH Administration Montelukast
[2020-02-07] MEDS: ALBUTEROL SULFATE (*SP) AEROSOL 1 PUFF 2 PUFF INHALATION (20:47)
[2020-02-08 00:27] VITALS: BP 109/53; PULSE 65; RESP 16; TEMP 36.6; O2SAT 96
[2020-02-08 04:47] VITALS: BP 120/54; PULSE 71; RESP 16; TEMP 36.7; O2SAT 95
[2020-02-08 06:42] LABS: Alanine Aminotransferase 37 U/L (4-35)
[2020-02-08 07:57] LABS: Estimated Glomerular Filt Rate > 60
[2020-02-08 08:00] VITALS: BP 131/60; PULSE 67; RESP 16; TEMP 36.7; O2SAT 96
[2020-02-08 09:00] VITALS: PULSE 66; RESP 18; O2SAT 96
[2020-02-08] MEDS: BUDESONIDE/FORMOTEROL (*SP) 160-4.5 MCG 6 GM INH 2 PUFF INHALATION (09:00)
--- NOTE | 2020-02-08 09:07 | PM.DS ---
DS: Admitting Diagnosis Admitting Diagnosis Admitting Diagnosis: Acute hypoxic respiratory failure, COVID infection DS: Discharge Diagnosis Discharge Diagnosis (1) Gastroesophageal reflux disease: Code(s): K21.9 - Gastro-esophageal reflux disease without esophagitis Status: Acute Assessment and Plan: Stable with PPI (2) Pneumonia due to COVID-19 virus: Code(s): U07.1 - COVID-19; J12.89 - Other viral pneumonia Status: Acute Assessment and Plan: Continue Remdesivir + Dexamethasone completed course today. Repeat chest xr shows improvement. Dischrage with medrol dose pack, Inhaler and cough syrup Long discussion with son about dischrage yesterday Pt walked in the room does not need supplementary oxygen on discharge. (3) Acute respiratory failure with hypoxia: Code(s): J96.01 - Acute respiratory failure with hypoxia Status: Resolved Assessment and Plan: Pt is on room air doing better. DS: Summary Time Spent with Patient Time attestation: Total time spent providing and/or coordinating discharge services:40 minutes on day of dischrage Exam Narrative: Exam Narrative: Pleasant elderly lady, comfortable, walking around in room, getting ready to leave Const: General: healthy appearing, comfortable, no acute distress, alert and awake Nutritional Appearance: average body habitus Orientation/consciousness: patient oriented x3 DS: Data Data Completed and Pending Labs on day of discharge: Labs from last 24 hours 02/08/20 02/08/20 06:16 06:14 Creatinine 0.50 L Estim Creat Clear Calc Not Reportable Estimated GFR > 60 ALT 37 H Preliminary micro results at discharge 02/04/20 13:14 Blood Culture - Preliminary Blood 02/04/20 14:09 Blood Culture - Preliminary Blood Discharge Plan Discharge Attending physician on discharge: Radha Watts Discharging Clinician: Radha Watts Anticipated Discharge Date/Time: 02/08/20 16:00 Patient Disposition: Home, Self-Care Activity: as tolerated Diet: regular Discharge Instructions: HOME QUARANTINE FOR 14 days - from first onset of signs/symptoms (01/27/20-02/10/20) FACE MASK WASH HANDS RETURN TO ED IF feeling SOB or other worrisome signs/symptoms Patient Instructions: Antibiotic Form, Pain Management in Older Adults (GEN), Droplet Precautions (GEN), Pulse Oximetry (GEN), COVID-19 (Coronavirus Disease 2019) (GEN), COVID-19 and Chronic Health Conditions (GEN), COVID-19: Slow the Coronavirus Spread (GEN), Face Coverings (Masks) and COVID-19 (GEN) Stand Alone Forms: General Discharge Information Follow-up/Referrals: Stef,Enrike Barcenas MD [Primary Care Provider] - Discharge Medications: New albuterol sulfate [Proventil HFA] 90 mcg/actuation Hfa Aerosol Inhaler 2 puff inhalation QIDRT PRN (Reason: Shortness Of Breath) Qty: 1 RF: 0 methylprednisolone [Medrol (Steven)] 4 mg tablets,dose pack See Rx Instructions .ROUTE .COMPLEX Qty: 21 RF: 0 guaifenesin [Mucus Relief ER] 600 mg Tablet Extended Release 12hr 600 mg PO Q12HR Qty: 30 RF: 0 Continued ondansetron HCl [Zofran] 4 mg tablet 4 mg PO Q6H PRN (Reason: nausea and vomiting) Qty: 10 RF: 0 pravastatin 40 mg tablet 40 mg PO DAILY RF: 0 spironolactone 25 mg tablet 25 mg PO DAILY RF: 0 pantoprazole 40 mg tablet,delayed release (DR/EC) 40 mg PO DAILY RF: 0 montelukast 10 mg tablet 10 mg PO DAILY RF: 0 ergocalciferol (vitamin D2) 1,250 mcg (50,000 unit) capsule 50,000 unit PO WEEKLY RF: 0 losartan 100 mg tablet 100 mg PO DAILY RF: 0 Breo Ellipta 100-25 mcg/dose blister with device 1 inh INHALATION DAILY RF: 0 Date of admission: 02/05/20 13:34 Primary Care Provider: DaleEnrike Admitting Provider: Kristofer Fitzgerald Attending physician on admission: Meera Youngblood Condition: Stable
[2020-02-08] MEDS: MONTELUKAST SODIUM 10 MG TABLET PO (09:30)
[2020-02-08] MEDS: ENOXAPARIN 40 MG/0.4 ML SYRINGE SUB-Q (09:30)
[2020-02-08] MEDS: PANTOPRAZOLE 40 MG TABLET PO (09:30)
[2020-02-08] MEDS: SPIRONOLACTONE 25 MG TABLET PO (09:30)
[2020-02-08] MEDS: PRAVASTATIN SODIUM 20 MG TABLET 40 MG PO (09:30)
[2020-02-08] MEDS: LOSARTAN POTASSIUM 100 MG TABLET PO (09:30)
[2020-02-08] MEDS: guaiFENesin 12 HR 600 MG TABCR PO (09:30)
[2020-02-08] MEDS: DEXAMETHASONE SOD PHOS INJ 4 MG/ML VIAL 6 MG IV PUSH (09:30)
--- NOTE | 2020-02-08 09:43 | PC.NURSE ---
Ambulated patient in her room to the bathroom and back three times with continuous monitoring of her oxygen saturation. Sats ranged from 93-96% on RA. When patient got back into bed, she stated she was kind of short of breath. Will update .
[2020-02-08 12:00] VITALS: BP 112/54; PULSE 75; RESP 16; TEMP 36.8; O2SAT 93
[2020-02-08] MEDS: REMDESIVIR 100 MG/NS 250 ML 100 MG/250 ML BAG 250 MG IVPB (13:32)
== END 2020-02-08 14:55 | disposition home or self-care (01) | DRG 177 ==
LOC: ANHED 16:19 → ANH3MEDSUR 16:24
PROVIDERS: Physician Assistant; Admitting Provider Internal Medicine; Emergency Provider Emergency Medicine; PCP Internal Medicine; Visit Provider Family Medicine
DX: U07.1 COVID-19 (principal); J12.89 Other viral pneumonia; J96.01 Acute respiratory failure with hypoxia; K21.9 Gastro-esophageal reflux disease without esophagitis; J45.909 Unspecified asthma, uncomplicated; E78.5 Hyperlipidemia, unspecified; I10 Essential (primary) hypertension; Z90.710 Acquired absence of both cervix and uterus
CPT/HCPCS: 36415; 36600; 71045; 80048; 80053; 82247; 82565; 82728; 82805; 83605; 83615; 83735; 84075; 84450; 84460; 85025; 85027; 85380; 85610; 85730; 86140; 87040; 94640; 96365; 96372; 96375; 96376; 99291; A9270; G0378; J1100; J1650